=== PATIENT | female | born 1960 | race African-American/Black ===

== ENCOUNTER 2017-05-06 09:21 | Outpatient (CLI) | payer OTHER ==
--- NOTE | 2017-05-06 11:32 | PRG ---
DATE OF SERVICE: 05/06/2017 SUBJECTIVE: This is a 57-year-old female returns today for followup on ulceration of the left secon d toe which developed after her amputation of left hallux. She has been doing well with her dressin g changes using Promogran and 4 x 4s. She has had no issues since last visit. Denies nausea, vomit ing, fevers or chills. PHYSICAL EXAMINATION: Ulcer to the left second toe has healed. There is a 0.2 cm x 0.3 cm scab, bu t no deeper wound to the area of the skin is dry and scaly. Amputation site has completely healed w ith no drainage. ASSESSMENT: 1. 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 2. Diabetes with peripheral neuropathy. 3. Status post amputation of the left hallux. PLAN: 1. No further wound care needed on these toes. Should start using moisturizer to soften and moistu rize the skin as it is quite dry and scaly. 2. I explained to her that she is at high risk for developing further foot complications and should follow up with me in 2-3 months at my main clinic for routine foot checks. 3. We discussed her doing routine checks on herself as well as proper foot hygiene.
== END 2017-05-06 09:22 | disposition home or self-care (01) ==
LOC: WCC 09:21
PROVIDERS: ATTEND Family Medicine
DX: E11.42 Type 2 diabetes mellitus with diabetic polyneuropathy (principal); Z89.422 Acquired absence of other left toe(s)
CPT/HCPCS: 97602

== ENCOUNTER 2017-08-16 11:10 | Outpatient (CLI) | payer OTHER ==
--- NOTE | 2017-08-16 11:32 | RAD ---
LEFT FOOT 3 VIEWS: Date: 08/16/17 HISTORY: 57-year-old female with left foot pain. COMPARISON: 04/22/17. FINDINGS: Postoperative changes of the second, third, and fourth toes with resultant fusion and internal fixati on screws stabilizing the second and third toes. Status post amputation changes of the first toe at t he level of the distal aspect of the proximal phalanx. Minimal arthrosis changes of the first metatar sophalangeal joint. Appearance is stable from the prior study. No acute fracture or dislocation. IMPRESSION: Stable postoperative changes. No fracture, dislocation, or other acute process. POS: [facility]
== END 2017-08-16 11:11 | disposition home or self-care (01) ==
LOC: RAD-FRANK 11:10
PROVIDERS: ATTEND Nurse Practitioner Family
DX: M79.672 Pain in left foot (principal); Z98.890 Other specified postprocedural states

== ENCOUNTER 2019-07-31 14:55 | Outpatient (CLI) | payer OTHER ==
--- NOTE | 2019-08-28 11:32 | MMO ---
Bilateral MAMMO Bilat Screen [facility]. CLINICAL HISTORY: Patient is 59 years old and is seen for screening. The patient has no family history of breast cancer. The patient has no personal history of cancer. VIEWS: The views performed were: bilateral craniocaudal with tomosynthesis and bilateral mediolateral oblique with tomosynthesis. FILMS COMPARED: No prior imaging studies are available for comparison. This study has been interpreted with the assistance of computer-aided detection. MAMMOGRAM FINDINGS: There are scattered fibroglandular densities. There are no suspicious masses, suspicious calcifications, or new areas of architectural distortion. IMPRESSION: THERE IS NO MAMMOGRAPHIC EVIDENCE OF MALIGNANCY. A ROUTINE FOLLOW-UP MAMMOGRAM IN 1 YEAR IS RECOMMENDED. THE RESULTS OF THIS EXAM WERE SENT TO THE PATIENT. ACR BI-RADS Category 2 - Benign finding MAMMOGRAPHY NOTE: 1. A negative mammogram report should not delay a biopsy if a dominant of clinically suspicious mass is present. 2. Approximately 10% to 15% of breast cancers are not detected by mammography. 3. Adenosis and dense breasts may obscure an underlying neoplasm. Reported by: MARCELINO JAMESON MD Electonically Signed: [id number]
== END 2019-07-31 14:56 | disposition home or self-care (01) ==
LOC: BICMAMMO 14:55
PROVIDERS: ATTEND Nurse Practitioner Family
DX: Z12.31 Encounter for screening mammogram for malignant neoplasm of breast (principal)
CPT/HCPCS: 77063; 77067

== ENCOUNTER 2022-02-10 10:26 | Outpatient (CLI) | payer MEDICARE, OTHER | END 2022-02-10 10:27 | disposition home or self-care (01) | LOC: RAD-FRANK 10:26 | PROVIDERS: ATTEND Nurse Practitioner Family | DX: M25.552 Pain in left hip (principal) ==

== ENCOUNTER 2022-05-20 09:13 | Outpatient (CLI) | payer MEDICARE, OTHER | END 2022-05-20 09:14 | disposition home or self-care (01) | LOC: RAD-FRANK 09:13 | PROVIDERS: ATTEND Nurse Practitioner Family | DX: M25.561 Pain in right knee (principal) ==

== ENCOUNTER 2023-04-26 14:30 | Outpatient (CLI) | payer MEDICARE, OTHER | END 2023-04-26 14:31 | disposition home or self-care (01) | LOC: RAD-FRANK 14:30 | PROVIDERS: ATTEND Nurse Practitioner Family | DX: M25.572 Pain in left ankle and joints of left foot (principal); M79.89 Other specified soft tissue disorders ==

== ENCOUNTER 2023-07-02 16:09 | Inpatient (IN) | payer MEDICARE, OTHER ==
[~2023-07-02 16:09] MED LIST: Iopamidol-370 76% 500 ML MDV (1 ML CHARGE) ONE
[2023-07-02 16:52] LABS: #Eosinphils 0.1 thou/uL (0.0-0.7); #Monocytes 0.4 thou/uL (0.11-0.59); %Basophils 0.4 % (0.0-1.0); %Eosinophils 1.1 % (0.0-10.0); %Lymphocytes 22.7 % (21.0-51.0); %Monocytes 5.2 % (0.0-10.0); %Neutrophils 70.5 % (42.0-75.0); Hemoglobin 14.2 g/dL (12.0-16.0); Mean Corpuscular Hemoglobin 27.6 pg (27.0-31.0); Mean Corpuscular Volume 83.7 fl (78.0-98.0); Mean Platelet Volume 10.6 fL (7.4-10.4); Platelet Count 143 10x3/uL (130-400); RBC Distribution Width 13.4 % (11.5-14.5); Red Blood Cell (RBC) Count 5.14 mill/uL (4.20-5.40); White Blood Cell (WBC) Count 7.1 10x3/uL (4.8-10.8)
[2023-07-02] MEDS ORDERED: diphenhydrAMINE 50 MG/ML VIAL ONE (17:05)
[2023-07-02] MEDS ORDERED: Metoclopramide HCl 10 MG/2 ML VIAL ONE (17:05)
[2023-07-02 17:17] LABS: Troponin I Less than 0.010 ng/mL (< 0.028)
[2023-07-02 17:21] LABS: ALT (SGPT) 17 U/L (8-55); AST (SGOT) 28 U/L (5-34); Albumin 4.4 g/dL (3.4-4.8); Alkaline Phosphatase 71 U/L (40-110); Anion Gap 17 mmol/L (10-20); BUN (Urea Nitrogen) 15 mg/dL (9.8-20.1); Bilirubin, Total 0.9 mg/dL (0.2-1.2); Calc. Creatinine Clearance 0 mL/min (70-130); Calcium 9.3 mg/dL (7.8-10.44); Carbon Dioxide 17 mmol/L (23-31); Chloride 109 mmol/L (98-107); Estimated GFR 96; Globulin 3.3 g/dL (2.4-3.5); Glucose 104 mg/dL (80-115); Lipase 13 U/L (8-78); Potassium 3.9 mmol/L (3.5-5.1); Protein, Total 7.7 g/dL (5.8-8.1); Sodium 139 mmol/L (136-145)
[2023-07-02] MEDS ORDERED: Morphine 4 MG/ML VIAL ONE (18:33)
[2023-07-02 18:42] LABS: Prothrombin Time 13.3 sec (12.0-14.7)
[2023-07-02] MEDS ORDERED: CEFAZOLIN 2 GM VIAL ONE (19:54)
[2023-07-02] MEDS ORDERED: Magnesium 5 GM/10 ML VIAL ONE (20:12)
[2023-07-02] MEDS ORDERED: HYDROmorphone 2 MG/ML VIAL ONE (20:12)
[2023-07-02] MEDS ORDERED: Vasopressin 20 UNITS/ML VIAL ONE (20:12)
[2023-07-02] MEDS ORDERED: Dexmedetomidine 200 MCG/2 ML VIAL ONE (20:12)
[2023-07-02] MEDS ORDERED: NEOSTIGMINE 3 MG/3 ML SYR 3 MG/3 ML SYRINGE ONE (20:40)
[2023-07-02] MEDS ORDERED: Rocuronium Bromide 10 MG/ML (10ML VIAL) ONE (20:40)
[2023-07-02] MEDS ORDERED: Dexamethasone 20 MG/5 ML VIAL ONE (20:40)
[2023-07-02] MEDS ORDERED: Glycopyrrolate 0.2 MG/ML 5 ML SYRINGE ONE (20:40)
[2023-07-02] MEDS ORDERED: Ondansetron PF 4 MG/2 ML Vial ONE (20:40)
[2023-07-02] MEDS ORDERED: ePHEDrine Sulfate 50 MG/10 ML VIAL ONE (20:40)
[2023-07-02] MEDS ORDERED: PHENYLEPHRINE-NS 100 MCG/ML 10 ML SYRINGE ONE (20:40)
[2023-07-02] MEDS ORDERED: PROPOFOL 200 MG/20 ML VIAL ONE (20:40)
[2023-07-02] MEDS ORDERED: Promethazine HCl 25 MG/ML VIAL IM PRN ×2 (21:56→21:57)
[2023-07-02] MEDS ORDERED: FENTANYL 500 MCG/10 ML VIAL 2,000 MCG in Sodium Chloride 0.9% 60 ML IV PRN (21:56)
[2023-07-02] MEDS ORDERED: Naloxone HCl 0.4 mg/ml Vial IV PRN (21:56)
[2023-07-02] MEDS ORDERED: diphenhydrAMINE 50 MG/ML VIAL IM PRN (21:56)
[2023-07-02] MEDS ORDERED: Ondansetron PF 4 MG/2 ML Vial IVP PRN ×2 (21:56→23:13)
[2023-07-02] MEDS ORDERED: diphenhydrAMINE 50 MG/ML VIAL IVP PRN (21:56)
[2023-07-02] MEDS ORDERED: diphenhydrAMINE 25 MG CAP PO PRN (21:56)
[2023-07-02] MEDS ORDERED: Ondansetron HCl/PF 4 MG/2 ML Vial IVP PRN (21:57)
[2023-07-02] MEDS ORDERED: Communication Order-Pharmacy FS SCH (22:00)
[2023-07-02] MEDS ORDERED: Dextrose 50% Abboject 50 ML SYRINGE SLOW IVP PRN (23:13)
[2023-07-02] MEDS ORDERED: Glucagon 1 MG/ML KIT IM PRN (23:13)
[2023-07-02] MEDS ORDERED: Dextrose 5% in Water 1,000 ML IV PRN (23:13)
[2023-07-03] MEDS: Lactated Ringer's 1,000 ML IV SCH ×3 (00:32→23:15)
[2023-07-03 01:45] VITALS: BMI 27.7
[2023-07-03 05:44] LABS: #Monocytes 1.2 thou/uL (0.11-0.59); #Neutrophils 15.8 thou/uL (1.40-6.50); %Basophils 0.2 % (0.0-1.0); %Lymphocytes 5.5 % (21.0-51.0); %Monocytes 6.8 % (0.0-10.0); %Neutrophils 86.9 % (42.0-75.0); Hematocrit 43.5 % (36.0-47.0); Hemoglobin 13.6 g/dL (12.0-16.0); Mean Corpuscular HGB CONC 31.3 g/dL (32.0-36.0); Mean Corpuscular Hemoglobin 27.9 pg (27.0-31.0); Platelet Count 139 10x3/uL (130-400); RBC Distribution Width 13.7 % (11.5-14.5); Red Blood Cell (RBC) Count 4.87 mill/uL (4.20-5.40); White Blood Cell (WBC) Count 18.2 10x3/uL (4.8-10.8)
[2023-07-03 05:55] LABS: Mean Corpuscular Volume 89.3 fl (78.0-98.0)
[2023-07-03 06:16] LABS: Anion Gap 18 mmol/L (10-20); BUN (Urea Nitrogen) 18 mg/dL (9.8-20.1); Calc. Creatinine Clearance 111 mL/min (70-130); Calcium 8.2 mg/dL (7.8-10.44); Carbon Dioxide 14 mmol/L (23-31); Chloride 114 mmol/L (98-107); Estimated GFR 90; Glucose 71 mg/dL (80-115); Potassium 4.8 mmol/L (3.5-5.1); Sodium 141 mmol/L (136-145)
[2023-07-03] MEDS ORDERED: TETANUS, DIPHTHERIA TOX,ADULT (TDVAX) 0.5 ML VIAL IM ONE (16:38)
[2023-07-04] MEDS ORDERED: Labetalol HCl 100 MG/20 ML VIAL SLOW IVP PRN (08:38)
[2023-07-04] MEDS ORDERED: traMADol HCl 50 MG TAB PO PRN (10:43)
[2023-07-04] MEDS ORDERED: Ketorolac Tromethamine 30 MG/ML VIAL IVP PRN (10:44)
[2023-07-04] MEDS ORDERED: Morphine 2 MG/ML VIAL SLOW IVP PRN (10:45)
[2023-07-04 11:09] LABS: #Neutrophils 6.5 thou/uL (1.40-6.50); %Basophils 0.3 % (0.0-1.0); %Eosinophils 0.1 % (0.0-10.0); %Lymphocytes 14.7 % (21.0-51.0); %Monocytes 11.4 % (0.0-10.0); %Neutrophils 73.1 % (42.0-75.0); Hemoglobin 10.8 g/dL (12.0-16.0); Mean Corpuscular HGB CONC 32.7 g/dL (32.0-36.0); Mean Corpuscular Hemoglobin 28.1 pg (27.0-31.0); Mean Corpuscular Volume 85.9 fl (78.0-98.0); Mean Platelet Volume 10.8 fL (7.4-10.4); Platelet Count 130 10x3/uL (130-400); RBC Distribution Width 14.4 % (11.5-14.5); Red Blood Cell (RBC) Count 3.84 mill/uL (4.20-5.40); White Blood Cell (WBC) Count 8.9 10x3/uL (4.8-10.8)
[2023-07-04 11:57] LABS: Anion Gap 17 mmol/L (10-20); BUN (Urea Nitrogen) 17 mg/dL (9.8-20.1); Calc. Creatinine Clearance 104 mL/min (70-130); Calcium 8.3 mg/dL (7.8-10.44); Carbon Dioxide 17 mmol/L (23-31); Chloride 112 mmol/L (98-107); Estimated GFR 83; Glucose 73 mg/dL (80-115); Phosphorus 2.3 mg/dL (2.3-4.7); Sodium 142 mmol/L (136-145)
[2023-07-04] MEDS: Lactated Ringer's 1,000 ML IV SCH (13:45)
[2023-07-04] MEDS: traMADol HCl 50 MG TAB PO SCH ×2 (13:46→18:23)
[2023-07-04] MEDS: Acetaminophen 500 MG TAB PO SCH ×2 (13:47→18:21)
[2023-07-04] MEDS: Ketorolac Tromethamine 30 MG/ML VIAL IVP SCH ×2 (13:47→18:22)
[2023-07-04] MEDS: Carvedilol 6.25 MG TAB PO SCH (20:51)
[2023-07-04] MEDS: Senokot S 8.6-50 MG TAB PO SCH (20:53)
[2023-07-05] MEDS: Acetaminophen 500 MG TAB PO SCH ×4 (00:41→18:46)
[2023-07-05] MEDS: traMADol HCl 50 MG TAB PO SCH ×4 (00:42→18:48)
[2023-07-05] MEDS: Ketorolac Tromethamine 30 MG/ML VIAL IVP SCH ×2 (00:43→05:54)
[2023-07-05 04:59] LABS: #Eosinphils 0.1 thou/uL (0.0-0.7); #Monocytes 0.7 thou/uL (0.11-0.59); #Neutrophils 4.2 thou/uL (1.40-6.50); %Basophils 0.4 % (0.0-1.0); %Eosinophils 1.8 % (0.0-10.0); %Lymphocytes 25.1 % (21.0-51.0); %Monocytes 10.3 % (0.0-10.0); %Neutrophils 62.1 % (42.0-75.0); Hematocrit 28.8 % (36.0-47.0); Hemoglobin 9.4 g/dL (12.0-16.0); Mean Corpuscular HGB CONC 32.6 g/dL (32.0-36.0); Mean Corpuscular Hemoglobin 27.8 pg (27.0-31.0); Mean Corpuscular Volume 85.2 fl (78.0-98.0); Mean Platelet Volume 11.1 fL (7.4-10.4); Platelet Count 107 10x3/uL (130-400); RBC Distribution Width 14.2 % (11.5-14.5); Red Blood Cell (RBC) Count 3.38 mill/uL (4.20-5.40); White Blood Cell (WBC) Count 6.7 10x3/uL (4.8-10.8)
[2023-07-05 05:26] LABS: Anion Gap 10 mmol/L (10-20); BUN (Urea Nitrogen) 18 mg/dL (9.8-20.1); Calc. Creatinine Clearance 109 mL/min (70-130); Calcium 8.1 mg/dL (7.8-10.44); Carbon Dioxide 23 mmol/L (23-31); Chloride 111 mmol/L (98-107); Estimated GFR 89; Glucose 96 mg/dL (80-115); Phosphorus 2.1 mg/dL (2.3-4.7); Potassium 3.7 mmol/L (3.5-5.1); Sodium 140 mmol/L (136-145)
[2023-07-05] MEDS: Carvedilol 6.25 MG TAB PO SCH ×2 (09:32→20:50)
[2023-07-05] MEDS: Senokot S 8.6-50 MG TAB PO SCH ×2 (09:32→20:49)
[2023-07-05] MEDS: Rosuvastatin 20 MG TAB PO SCH (09:32)
[2023-07-05] MEDS: PHOS-NAK 1 PKT PACK PO SCH ×2 (09:33→12:42)
[2023-07-05] MEDS: Lactated Ringer's 1,000 ML IV SCH (12:43)
[2023-07-06] MEDS: Acetaminophen 500 MG TAB PO SCH ×3 (01:01→12:49)
[2023-07-06] MEDS: traMADol HCl 50 MG TAB PO SCH ×3 (01:04→12:51)
[2023-07-06 05:21] LABS: #Eosinphils 0.1 thou/uL (0.0-0.7); #Monocytes 0.4 thou/uL (0.11-0.59); #Neutrophils 2.4 thou/uL (1.40-6.50); %Basophils 0.5 % (0.0-1.0); %Eosinophils 3.3 % (0.0-10.0); %Lymphocytes 30.9 % (21.0-51.0); %Monocytes 9.1 % (0.0-10.0); Hematocrit 30.6 % (36.0-47.0); Mean Corpuscular HGB CONC 32.7 g/dL (32.0-36.0); Mean Corpuscular Hemoglobin 27.9 pg (27.0-31.0); Mean Corpuscular Volume 85.2 fl (78.0-98.0); Mean Platelet Volume 10.9 fL (7.4-10.4); Platelet Count 120 10x3/uL (130-400); RBC Distribution Width 13.7 % (11.5-14.5); Red Blood Cell (RBC) Count 3.59 mill/uL (4.20-5.40); White Blood Cell (WBC) Count 4.3 10x3/uL (4.8-10.8)
[2023-07-06 05:42] LABS: Magnesium 1.7 mg/dL (1.6-2.6); Phosphorus 2.5 mg/dL (2.3-4.7)
[2023-07-06] MEDS: Lactated Ringer's 1,000 ML IV SCH (07:58)
[2023-07-06] MEDS: Rosuvastatin 20 MG TAB PO SCH (08:47)
[2023-07-06] MEDS: Senokot S 8.6-50 MG TAB PO SCH (08:47)
[2023-07-06] MEDS: Carvedilol 6.25 MG TAB PO SCH (08:47)
[2023-07-06 12:08] VITALS: BP 143/76; TEMP 98.7
== END 2023-07-06 14:02 | disposition home or self-care (01) | DRG 358 ==
LOC: ERS 16:09 → SDC/OP 20:47 → SJJU 23:42
PROVIDERS: ADMIT Student in an Organized Health Care Education/Training Program; ATTEND Student in an Organized Health Care Education/Training Program
PROC: 0DBV0ZZ Excision of Mesentery, Open Approach (ICD-10-PCS; principal; 2023-07-02)
PROC: 0DJV0ZZ Inspection of Mesentery, Open Approach (ICD-10-PCS; 2023-07-02)
PROC: 3E033XZ Introduction of Vasopressor into Peripheral Vein, Percutaneous Approach (ICD-10-PCS; 2023-07-02)
DX: K56.2 Volvulus (principal); K46.9 Unspecified abdominal hernia without obstruction or gangrene; E66.9 Obesity, unspecified; Z98.84 Bariatric surgery status
CPT/HCPCS: 36415; 74177; 80048; 80053; 83605; 83690; 83735; 84100; 84484; 85025; 85610; 85730; 86850; 86900; 86901; 93005; 94760; A4314; J1100; J1170; J1200; J1650; J1885; J2270; J2405; J2704; J2765; J3010; J3475; J3490; J7120; Q9967